=== PATIENT | male | born 1960 | race Two or more races ===

== ENCOUNTER 2024-01-29 11:37 | Inpatient (IN) | payer MEDICAID ==
[~2024-01-29] VITALS: Ht 167.6 cm; Wt 100.2 kg
[2024-01-29] MEDS: PREDNISONE 20MG TABLET PO STA (12:22)
[2024-01-29 12:38] LABS: HEMATOCRIT. 45.5 % (42.0-52.0); HEMOGLOBIN. 14.1 g/dL (14.0-18.0); MEAN CORPUSCULAR HEMOGLOBIN 24.5 pg (28.0-32.0); MEAN CORPUSCULAR HGB CONC 30.9 g/dL (31.0-37.0); MEAN CORPUSCULAR VOLUME 79.2 fL (80.0-94.0); MEAN PLATELET VOLUME 9.6 fl (7.4-10.4); PLATELET 297 x1000/uL (130-400); RED BLOOD CELL COUNT 5.75 mill/uL (4.7-6.1); RED CELL DISTRIBUTION WIDTH 20.5 % (11.6-14.6); WHITE BLOOD COUNT 13.5 x1000/uL (4.5-11.0)
[2024-01-29 12:48] LABS: DIFFERENTIAL COMMENT 1
[2024-01-29 12:58] LABS: CHLORIDE 108 mEq/L (98-107); POTASSIUM 4.4 mEq/L (3.5-5.1); SODIUM 140 mEq/L (136-145)
[2024-01-29 13:01] LABS: CALCIUM 9.3 mg/dL (8.7-10.4); CARBON DIOXIDE 22 mEq/L (21-32)
[2024-01-29 13:06] LABS: CREATININE 1.4 mg/dL (0.6-1.3); GLUCOSE 172 mg/dL (70-105); UREA NITROGEN BLOOD 32 mg/dL (9-23)
[2024-01-29 13:08] LABS: ALANINE AMINOTRANSFERASE 108 IU/L (10-49); ALBUMIN 4.5 g/dL (3.2-4.8); ASPARTATE AMINOTRANSFERASE 67 IU/L (<34)
[2024-01-29 13:09] LABS: BILIRUBIN DIRECT 0.6 mg/dL (<=3.0); BILIRUBIN TOTAL 1.9 mg/dL (0.1-1.0); PROTEIN TOTAL 7.3 g/dL (6.0-8.3)
[2024-01-29 13:12] LABS: TROPONIN I HIGH SENSITIVITY < 4 ng/L (3.0-53)
[2024-01-29] MEDS: ALBUTEROL (0.083%) 2.5MG/3ML NEB HHN SCH (13:29)
[2024-01-29] MEDS: IPRATROPIUM BROMIDE (0.02%) 0.5MG/2.5ML NEB HHN STA ×2 (13:31→17:26)
[2024-01-29 13:33] VITALS: PULSE 109; RESP 24; O2SAT 98
[2024-01-29 14:12] LABS: PLATELET ESTIMATE NORMAL
[2024-01-29 14:13] LABS: ANISOCYTOSIS 1+
[2024-01-29] MEDS ORDERED: DEXTROSE 50% WATER 50ML SYRINGE IV PRN (14:15)
[2024-01-29] MEDS ORDERED: GUAIFENESIN 200MG/10ML SUGAR FREE UDC PO PRN (14:15)
[2024-01-29] MEDS ORDERED: ACETAMINOPHEN 325MG TABLET PO PRN ×2 (14:15)
[2024-01-29] MEDS ORDERED: NON FORMULARY MED XX PRN (14:15)
[2024-01-29] MEDS: FUROSEMIDE 40MG/4ML VIAL IV SCH (14:40)
[2024-01-29] MEDS: CEFTRIAXONE 1GM/50ML 50 ML IV SCH (14:40)
[2024-01-29 14:58] LABS: BG BASE EXCESS -6.2 mmol/L (-2.0-3.0); BG CARBOXYHEMOGLOBIN 1.2 % (0.5-1.5); BG DEOXYHEMOGLOBIN 4.3 % (0.0-5.0); BG HCO3 ACT 16.4 mmol/L (21.0-28.0); BG METHEMOGLOBIN 0.3 % (0.5-1.5); BG OXYGEN SATURATION 95.6 % (94.0-98.0); BG OXYHEMOGLOBIN 94.2 % (94.0-98.0); BG PCO2 25.8 mmHg (35.0-48.0); BG PH 7.421 (7.350-7.450); BG PO2 77.6 mmHg (83.0-108.0); BG SAMPLE SITE RIGHT RADIAL; BG TOTAL HEMOGLOBIN 14.5 g/dL (13.5-17.5); BG VENT MODE ROOM AIR
[2024-01-29] MEDS: METHYLPREDNISOLONE SOD SUCC 40MG/ML (ACT-O-VIAL) IV SCH (15:01)
[2024-01-29 15:10] LABS: IRON 41 ug/dL (65-175)
[2024-01-29 15:11] LABS: LDL CHOLESTEROL 93 mg/dL (5-100); TRIGLYCERIDE 150 mg/dL (0-150)
[2024-01-29 15:12] LABS: ALANINE AMINOTRANSFERASE 112 IU/L (10-49); ALBUMIN 4.4 g/dL (3.2-4.8); ASPARTATE AMINOTRANSFERASE 68 IU/L (<34); BILIRUBIN DIRECT 0.7 mg/dL (<=3.0); CHOLESTEROL 129 mg/dL (<200); HDL CHOLESTEROL 27 mg/dL (>55)
[2024-01-29 15:13] LABS: BILIRUBIN TOTAL 1.8 mg/dL (0.1-1.0); PHOSPHORUS 3.8 mg/dL (2.5-4.9); TOTAL IRON BINDING CAPACITY 426 ug/dl (250-425)
[2024-01-29 15:14] LABS: T4 FREE 1.74 ng/dL (0.89-1.76); VITAMIN B12 SERUM 405 pg/mL (211-911)
[2024-01-29 15:15] LABS: ETHANOL BLOOD < 10 mg/dL (<10); FERRITIN 94 ng/mL (22-322); THYROID STIMULATING HORMONE 2.92 uIU/mL (0.55-4.78)
[2024-01-29 15:16] LABS: FOLIC ACID (FOLATE) SERUM 19.52 ng/mL (>5.38)
[2024-01-29] MEDS: NICOTINE 14MG PATCH TD SCH (15:25)
[2024-01-29] MEDS: ENOXAPARIN 100MG/ML SYR SUBCUT NR (15:25)
[2024-01-29] MEDS: AZITHROMYCIN 500MG/250ML 250 ML IV SCH (15:37)
[2024-01-29 15:45] LABS: CLARITY URINE CLEAR (CLEAR); COLOR URINE YELLOW (YELLOW); GLUCOSE URINE NEGATIVE (NEGATIVE); KETONES URINE NEGATIVE (NEGATIVE); LEUKOCYTE ESTERASE URINE 2+ (NEGATIVE); NITRITE URINE NEGATIVE (NEGATIVE); OCCULT BLOOD URINE NEGATIVE (NEGATIVE); PH URINE 5.5 (4.5-8.0); PROTEIN URINE TRACE (NEGATIVE); UROBILINOGEN URINE 0.2 E.U./dL (0.2-1.0)
[2024-01-29 16:04] LABS: INR 1.2; PROTHROMBIN TIME 13.6 sec (9.6-11.0)
[2024-01-29 16:06] LABS: LACTIC ACID 2.3 mmol/L (0.4-2.0)
[2024-01-29 16:08] LABS: *AMPHETAMINES SCREEN URINE NEGATIVE (NEGATIVE); *BARBITURATES SCREEN URINE NEGATIVE (NEGATIVE); *BENZODIAZEPINES SCREEN URINE NEGATIVE (NEGATIVE); *COCAINE SCREEN URINE NEGATIVE (NEGATIVE); CANNABINOID URINE SCREEN PRESUMPTIVE POSITIVE (NEGATIVE); ECSTASY MDMA SCREEN URINE NEGATIVE (NEGATIVE); METHADONE URINE SCREEN NEGATIVE (NEGATIVE); OPIATES URINE SCREEN NEGATIVE (NEGATIVE); PHENCYCLIDINE URINE SCREEN NEGATIVE (NEGATIVE)
[2024-01-29] MEDS: ASPIRIN 81MG TABLET PO SCH (16:46)
[2024-01-29] MEDS: LORAZEPAM 0.5MG TABLET PO PRN (16:51)
[2024-01-29] MEDS: BLOOD SUGAR DIAGNOSTIC STRIP TEST SCH (17:00)
[2024-01-29 17:15] LABS: BACTERIA URINE TRACE; RBC URINE 0-2 /hpf (0-2); SQUAMOUS EPITHELIAL CELL URINE FEW /lpf (RARE/1+); WBC URINE 25-50 /hpf (0-2)
[2024-01-29] MEDS: IPRATROPIUM/ALBUTEROL 0.5-3(2.5)MG/3ML NEB HHN SCH (17:19)
[2024-01-29 17:26] VITALS: PULSE 116; RESP 33; O2SAT 94
[2024-01-29] MEDS: ALBUTEROL (0.083%) 2.5MG/3ML NEB HHN ONE (17:26)
[2024-01-29] MEDS: INSULIN LISPRO 100 UNITS/ML SUBCUT SCH (18:56)
[2024-01-29] MEDS ORDERED: MELATONIN 3MG TABLET PO PRN (21:00)
[2024-01-29] MEDS: ATORVASTATIN CALCIUM 20MG TABLET PO SCH (21:59)
[2024-01-29] MEDS: ENOXAPARIN 100MG/ML SYR SUBCUT SCH (23:59)
[2024-01-30 02:52] LABS: CREATINE KINASE 172 IU/L (46-171)
[2024-01-30 02:54] LABS: TROPONIN I HIGH SENSITIVITY < 4 ng/L (3.0-53)
[2024-01-30 05:09] LABS: HEMOGLOBIN. 12.7 g/dL (14.0-18.0); MEAN CORPUSCULAR HGB CONC 31.7 g/dL (31.0-37.0); MEAN CORPUSCULAR VOLUME 78.9 fL (80.0-94.0); PLATELET 231 x1000/uL (130-400); RED BLOOD CELL COUNT 5.07 mill/uL (4.7-6.1); RED CELL DISTRIBUTION WIDTH 20.3 % (11.6-14.6); WHITE BLOOD COUNT 8.3 x1000/uL (4.5-11.0)
[2024-01-30 05:20] LABS: CHLORIDE 105 mEq/L (98-107); POTASSIUM 4.7 mEq/L (3.5-5.1); SODIUM 134 mEq/L (136-145)
[2024-01-30 05:21] LABS: CALCIUM 8.9 mg/dL (8.7-10.4); CARBON DIOXIDE 21 mEq/L (21-32)
[2024-01-30 05:26] LABS: CREATINE KINASE 178 IU/L (46-171); CREATININE 1.8 mg/dL (0.6-1.3); UREA NITROGEN BLOOD 40 mg/dL (9-23)
[2024-01-30 05:40] LABS: GLUCOSE 430 mg/dL (70-105); TROPONIN I HIGH SENSITIVITY < 4 ng/L (3.0-53)
[2024-01-30 05:44] LABS: DIFFERENTIAL COMMENT 1
[2024-01-30] MEDS: INSULIN LISPRO 100 UNITS/ML SUBCUT NR (08:01)
[2024-01-30] MEDS: LOSARTAN 50 MG TABLET PO SCH (10:18)
[2024-01-30 10:37] LABS: PLATELET ESTIMATE NORMAL
[2024-01-30 10:38] LABS: ANISOCYTOSIS 1+
[2024-01-30] MEDS: METOPROLOL TARTRATE 50MG TABLET PO SCH (11:41)
[2024-01-30] MEDS: CEFTRIAXONE 1GM/50ML 50 ML IV SCH (13:21)
[2024-01-30] MEDS: LORAZEPAM 1MG TABLET PO PRN (13:31)
[2024-01-30] MEDS: AZITHROMYCIN 500MG/250ML 250 ML IV SCH (14:10)
[2024-01-30 17:57] VITALS: PULSE 75; RESP 26; O2SAT 96
[2024-01-30] MEDS ORDERED: IPRATROPIUM/ALBUTEROL 0.5-3(2.5)MG/3ML NEB HHN NR (17:57)
[2024-01-30 18:00] VITALS: BP 134/107; PULSE 125; RESP 25; TEMP 37.05852; O2SAT 91
[2024-01-30] MEDS ORDERED: IPRATROPIUM/ALBUTEROL 0.5-3(2.5)MG/3ML NEB HHN PRN (18:00)
[2024-01-30] MEDS: METOPROLOL TARTRATE 50MG TABLET PO NR (18:48)
[2024-01-30] MEDS: METHYLPREDNISOLONE SOD SUCC 40MG/ML (ACT-O-VIAL) IV SCH (18:49)
[2024-01-30 19:06] VITALS: BP 137/107; PULSE 125; RESP 22; TEMP 37.0852
[2024-01-30 20:00] VITALS: BP 94/82; PULSE 107; RESP 22; TEMP 36.28068; O2SAT 98
[2024-01-30] MEDS: LORAZEPAM 2MG/ML INJ IV PRN (21:43)
[2024-01-30] MEDS: IPRATROPIUM/ALBUTEROL 0.5-3(2.5)MG/3ML NEB HHN SCH (22:00)
[2024-01-31] VITALS (11 sets, daily range): BP systolic 122–199; BP diastolic 83–120; PULSE 78–117; RESP 19–22; TEMP 36.44736–37.00296; O2SAT 90–100
[2024-01-31] MEDS: METOPROLOL TARTRATE 50MG TABLET PO SCH (08:14)
[2024-01-31 09:20] LABS: HEMATOCRIT. 39.5 % (42.0-52.0); HEMOGLOBIN. 12.2 g/dL (14.0-18.0); MEAN CORPUSCULAR HEMOGLOBIN 24.8 pg (28.0-32.0); PLATELET 241 x1000/uL (130-400); RED BLOOD CELL COUNT 4.93 mill/uL (4.7-6.1); RED CELL DISTRIBUTION WIDTH 20.7 % (11.6-14.6)
[2024-01-31 09:22] LABS: DIFFERENTIAL COMMENT 1
[2024-01-31 09:25] LABS: CHLORIDE 106 mEq/L (98-107); POTASSIUM 5.9 mEq/L (3.5-5.1); SODIUM 138 mEq/L (136-145)
[2024-01-31 09:26] LABS: CALCIUM 9.3 mg/dL (8.7-10.4); CARBON DIOXIDE 25 mEq/L (21-32)
[2024-01-31 09:31] LABS: CREATININE 1.3 mg/dL (0.6-1.3); GLUCOSE 299 mg/dL (70-105); UREA NITROGEN BLOOD 44 mg/dL (9-23)
[2024-01-31 09:33] LABS: PHOSPHORUS 3.9 mg/dL (2.5-4.9)
[2024-01-31] MEDS ORDERED: IPRATROPIUM/ALBUTEROL 0.5-3(2.5)MG/3ML NEB HHN NR (10:00)
[2024-01-31] MEDS: CALCIUM GLUCONATE 100MG/ML 10ML VIAL IV NR (10:31)
[2024-01-31] MEDS: DOCUSATE SODIUM 100MG CAPSULE PO PRN (10:31)
[2024-01-31] MEDS: DEXTROSE 50% WATER 50ML SYRINGE IV NR (10:31)
[2024-01-31] MEDS: INSULIN REGULAR (HUMULIN R) 1000UNITS/10ML VIAL IV NR (10:32)
[2024-01-31 13:16] LABS: BG BASE EXCESS -4.7 mmol/L (-2.0-3.0); BG CARBOXYHEMOGLOBIN 0.8 % (0.5-1.5); BG DEOXYHEMOGLOBIN 1.3 % (0.0-5.0); BG FRACTION INSPIRED OXYGEN 36; BG HCO3 ACT 20.1 mmol/L (21.0-28.0); BG METHEMOGLOBIN 0.3 % (0.5-1.5); BG OXYGEN SATURATION 98.7 % (94.0-98.0); BG OXYHEMOGLOBIN 97.6 % (94.0-98.0); BG PCO2 36.1 mmHg (35.0-48.0); BG PH 7.363 (7.350-7.450); BG PO2 112.7 mmHg (83.0-108.0); BG TOTAL HEMOGLOBIN 13.3 g/dL (13.5-17.5); BG VENT MODE NASAL CANNULA
[2024-01-31] MEDS: INSULIN REGULAR (HUMULIN R) 1000UNITS/10ML VIAL SUBCUT NR (13:32)
[2024-01-31] MEDS: DILTIAZEM HCL 60MG TABLET PO SCH (13:32)
[2024-01-31 16:39] LABS: POTASSIUM 6.2 mEq/L (3.5-5.1)
[2024-01-31] MEDS: INSULIN LISPRO 100 UNITS/ML SUBCUT NR (16:39)
[2024-01-31] MEDS ORDERED: ALBUTEROL (0.083%) 2.5MG/3ML NEB HHN NR (17:00)
[2024-01-31] MEDS: SODIUM POLYSTYRENE SULFONATE 15 G/60 ML BOT PO NR (17:06)
[2024-01-31] MEDS: SODIUM BICARBONATE 8.4% 50MEQ/50ML SYR IV NR (17:06)
[2024-01-31] MEDS: CHLORDIAZEPOXIDE 10MG CAPSULE PO SCH (17:06)
[2024-01-31] MEDS: INSULIN LISPRO 100 UNITS/ML SUBCUT SCH (17:58)
[2024-01-31] MEDS: BUDESONIDE 0.5MG/2ML NEB HHN SCH (18:00)
[2024-01-31] MEDS: FUROSEMIDE 40MG/4ML VIAL IVP NR (18:55)
[2024-01-31] MEDS: CALCIUM GLUCONATE 1GM PREMIX 50 ML IV NR (20:32)
[2024-01-31] MEDS ORDERED: CHLORDIAZEPOXIDE 10MG CAPSULE PO SCH (22:00)
[2024-01-31] MEDS: CLONIDINE 0.1MG TABLET PO SCH (22:00)
[2024-01-31] MEDS: INSULIN GLARGINE 100 UNITS/ML SUBCUT SCH (22:22)
[2024-01-31 23:51] LABS: CARBON DIOXIDE 28 mEq/L (21-32); CHLORIDE 106 mEq/L (98-107); POTASSIUM 5.2 mEq/L (3.5-5.1); SODIUM 140 mEq/L (136-145)
[2024-01-31 23:52] LABS: CALCIUM 9.6 mg/dL (8.7-10.4)
[2024-01-31 23:57] LABS: CREATININE 1.2 mg/dL (0.6-1.3); GLUCOSE 176 mg/dL (70-105); UREA NITROGEN BLOOD 39 mg/dL (9-23)
[2024-01-31 23:58] LABS: PHOSPHORUS 4.5 mg/dL (2.5-4.9)
[2024-01-31 23:59] LABS: CREATINE KINASE 200 IU/L (46-171)
[2024-02-01] VITALS (7 sets, daily range): BP systolic 145–166; BP diastolic 62–104; PULSE 72–98; RESP 15–20; TEMP 36.114–36.89184; O2SAT 95–99
[2024-02-01 00:08] LABS: ANISOCYTOSIS 1+; PLATELET ESTIMATE NORMAL
[2024-02-01 07:31] LABS: HEMATOCRIT. 37.9 % (42.0-52.0); HEMOGLOBIN. 11.9 g/dL (14.0-18.0); MEAN CORPUSCULAR HEMOGLOBIN 24.9 pg (28.0-32.0); MEAN CORPUSCULAR HGB CONC 31.4 g/dL (31.0-37.0); MEAN CORPUSCULAR VOLUME 79.3 fL (80.0-94.0); MEAN PLATELET VOLUME 9.7 fl (7.4-10.4); PLATELET 229 x1000/uL (130-400); RED BLOOD CELL COUNT 4.77 mill/uL (4.7-6.1); RED CELL DISTRIBUTION WIDTH 20.3 % (11.6-14.6); WHITE BLOOD COUNT 10.8 x1000/uL (4.5-11.0)
[2024-02-01 07:40] LABS: DIFFERENTIAL COMMENT 1
[2024-02-01 07:41] LABS: CHLORIDE 104 mEq/L (98-107); POTASSIUM 5.3 mEq/L (3.5-5.1); SODIUM 139 mEq/L (136-145)
[2024-02-01 07:42] LABS: CALCIUM 9.4 mg/dL (8.7-10.4); CARBON DIOXIDE 27 mEq/L (21-32)
[2024-02-01 07:47] LABS: CREATININE 1.2 mg/dL (0.6-1.3); GLUCOSE 235 mg/dL (70-105); UREA NITROGEN BLOOD 38 mg/dL (9-23)
[2024-02-01 07:48] LABS: CREATINE KINASE 208 IU/L (46-171)
[2024-02-01 07:50] LABS: PHOSPHORUS 4.2 mg/dL (2.5-4.9)
[2024-02-01] MEDS ORDERED: HYDROXYZINE 25MG TABLET PO PRN (08:45)
[2024-02-01] MEDS ORDERED: LORAZEPAM 0.5MG TABLET PO PRN (08:45)
[2024-02-01] MEDS: AZITHROMYCIN 500 MG TABLET PO SCH (08:48)
[2024-02-01] MEDS: SERTRALINE HCL 25MG TABLET PO SCH (08:58)
[2024-02-01] MEDS: FUROSEMIDE 40MG/4ML VIAL IVP SCH (14:51)
[2024-02-01] MEDS: CLOTRIMAZOLE 1% CREAM 15GM TOP SCH (14:52)
[2024-02-01] MEDS: DIGOXIN 500MCG/2ML AMP IV NR (14:52)
[2024-02-01 15:19] LABS: ANISOCYTOSIS 2+; MICROCYTOSIS 1+; PLATELET ESTIMATE NORMAL
[2024-02-01 17:00] LABS: CREATINE KINASE 161 IU/L (46-171)
[2024-02-01] MEDS: DIGOXIN 125MCG TABLET PO SCH (17:21)
[2024-02-01] MEDS: PREDNISONE 20MG TABLET PO SCH (21:42)
[2024-02-02] VITALS (9 sets, daily range): BP systolic 126–163; BP diastolic 68–110; PULSE 53–102; RESP 10–24; TEMP 36.44736–36.9474; O2SAT 95–98
[2024-02-02 07:03] LABS: CARBON DIOXIDE 30 mEq/L (21-32); CHLORIDE 100 mEq/L (98-107); POTASSIUM 4.7 mEq/L (3.5-5.1); SODIUM 136 mEq/L (136-145)
[2024-02-02 07:05] LABS: CALCIUM 9.4 mg/dL (8.7-10.4)
[2024-02-02 07:09] LABS: CREATININE 1.2 mg/dL (0.6-1.3); UREA NITROGEN BLOOD 37 mg/dL (9-23)
[2024-02-02 07:11] LABS: DIGOXIN 0.3 ng/mL (0.8-2.0)
[2024-02-02 07:29] LABS: HEMATOCRIT 40.4 % (42.0-52.0); HEMOGLOBIN 12.2 g/dL (14.0-18.0); MEAN CORPUSCULAR HEMOGLOBIN 24.3 pg (28.0-32.0); MEAN CORPUSCULAR HGB CONC 30.3 g/dL (31.0-37.0); MEAN CORPUSCULAR VOLUME 80.1 fL (80.0-94.0); PLATELET 244 x1000/uL (130-400); RED BLOOD CELL COUNT 5.04 mill/uL (4.7-6.1); RED CELL DISTRIBUTION WIDTH 20.6 % (11.6-14.6); WHITE BLOOD COUNT 11.2 x1000/uL (4.5-11.0)
[2024-02-02 08:43] LABS: GLUCOSE 450 mg/dL (70-105)
[2024-02-02] MEDS: INSULIN GLARGINE 100 UNITS/ML SUBCUT SCH (09:39)
[2024-02-02] MEDS: CLONIDINE 0.1MG TABLET PO PRN (09:56)
[2024-02-03] VITALS: BP 143/59; PULSE 91; RESP 16; TEMP 36.78072; O2SAT 97
[2024-02-03 04:00] VITALS: BP 132/88; PULSE 96; RESP 18; TEMP 36.6696; O2SAT 97
[2024-02-03 06:45] LABS: CHLORIDE 101 mEq/L (98-107); POTASSIUM 4.1 mEq/L (3.5-5.1); SODIUM 139 mEq/L (136-145)
[2024-02-03 06:46] LABS: CALCIUM 8.9 mg/dL (8.7-10.4); CARBON DIOXIDE 33 mEq/L (21-32)
[2024-02-03 06:51] LABS: CREATININE 0.9 mg/dL (0.6-1.3); UREA NITROGEN BLOOD 26 mg/dL (9-23)
[2024-02-03 06:56] LABS: BASOPHILS % 0.2 % (0.0-2.0); DIFFERENTIAL COMMENT 0; EOSINOPHILS % 0.5 % (0.0-5.0); HEMATOCRIT. 41.7 % (42.0-52.0); HEMOGLOBIN. 12.5 g/dL (14.0-18.0); MEAN CORPUSCULAR HEMOGLOBIN 23.8 pg (28.0-32.0); MEAN CORPUSCULAR HGB CONC 29.9 g/dL (31.0-37.0); MEAN CORPUSCULAR VOLUME 79.7 fL (80.0-94.0); MEAN PLATELET VOLUME 9.4 fl (7.4-10.4); MONOCYTES % 7.3 % (2.0-8.0); PLATELET 231 x1000/uL (130-400); RED BLOOD CELL COUNT 5.23 mill/uL (4.7-6.1); RED CELL DISTRIBUTION WIDTH 20.1 % (11.6-14.6); WHITE BLOOD COUNT 11.6 x1000/uL (4.5-11.0)
[2024-02-03 07:26] LABS: GLUCOSE 170 mg/dL (70-105)
[2024-02-03 08:00] VITALS: BP 124/90; PULSE 98; RESP 20; TEMP 37.11408; O2SAT 98
[2024-02-03] MEDS ORDERED: LIDOCAINE HCL 1% 10 MG/ML 10ML VIAL ONE (09:55)
[2024-02-03] MEDS ORDERED: DIPHENHYDRAMINE 50MG/ML VIAL ONE (09:55)
[2024-02-03] MEDS ORDERED: IODIXANOL 320MG/ML 100 ML BOTTLE IV ONE ×2 (09:55→10:56)
[2024-02-03] MEDS ORDERED: HEPARIN 1000 UNITS/ML 10ML ONE ×2 (09:55→10:48)
[2024-02-03] MEDS ORDERED: VERAPAMIL HCL 2.5 MG/1 ML 2ML VIAL IV ONE (09:55)
[2024-02-03] MEDS ORDERED: MIDAZOLAM HCL 2 MG/2 ML VIAL ONE (10:15)
[2024-02-03] MEDS ORDERED: FENTANYL CITRATE/PF 50MCG/ML 2ML VIAL ONE (10:15)
[2024-02-03] MEDS ORDERED: METOPROLOL TARTRATE 5MG/5ML VIAL IV ONE (10:17)
[2024-02-03] MEDS ORDERED: FUROSEMIDE 40MG/4ML VIAL ONE (10:46)
[2024-02-03] MEDS ORDERED: ATROPINE SULFATE 1MG/10ML SYR ONE (10:52)
[2024-02-03] MEDS ORDERED: CLOPIDOGREL 75MG TABLET ONE (10:55)
[2024-02-03] MEDS ORDERED: ACETAMINOPHEN 325MG TABLET PO PRN (11:15)
[2024-02-03] MEDS ORDERED: ATROPINE SULFATE 1MG/10ML SYR IV PRN (11:15)
[2024-02-03 12:00] VITALS: BP 117/91; PULSE 98; RESP 29; TEMP 37.00296; O2SAT 98
[2024-02-03] MEDS: SENNOSIDES 8.6MG TABLET PO SCH (12:15)
[2024-02-03 16:00] VITALS: BP 147/83; PULSE 96; RESP 21; TEMP 36.78072; O2SAT 95
[2024-02-03 20:00] VITALS: BP 114/78; PULSE 92; RESP 18; TEMP 36.72516; O2SAT 96
[2024-02-04] VITALS: BP 128/99; PULSE 94; RESP 20; TEMP 36.6696; O2SAT 97
[2024-02-04 04:00] VITALS: BP 131/56; PULSE 96; RESP 18; TEMP 36.89184; O2SAT 96
[2024-02-04 06:39] LABS: BASOPHILS % 0.1 % (0.0-2.0); DIFFERENTIAL COMMENT 0; EOSINOPHILS % 0.9 % (0.0-5.0); HEMATOCRIT. 40.8 % (42.0-52.0); HEMOGLOBIN. 12.7 g/dL (14.0-18.0); LYMPHOCYTES % 9.1 % (20.0-50.0); MEAN CORPUSCULAR HEMOGLOBIN 24.5 pg (28.0-32.0); MEAN CORPUSCULAR HGB CONC 31.2 g/dL (31.0-37.0); MEAN CORPUSCULAR VOLUME 78.7 fL (80.0-94.0); MEAN PLATELET VOLUME 9.4 fl (7.4-10.4); MONOCYTES % 8.2 % (2.0-8.0); NEUTROPHILS % 81.7 % (40.0-76.0); PLATELET 236 x1000/uL (130-400); RED BLOOD CELL COUNT 5.18 mill/uL (4.7-6.1); WHITE BLOOD COUNT 12.3 x1000/uL (4.5-11.0)
[2024-02-04 06:42] LABS: CHLORIDE 100 mEq/L (98-107); POTASSIUM 4.2 mEq/L (3.5-5.1); SODIUM 138 mEq/L (136-145)
[2024-02-04 06:43] LABS: CALCIUM 8.7 mg/dL (8.7-10.4); CARBON DIOXIDE 34 mEq/L (21-32)
[2024-02-04 06:48] LABS: CREATININE 1.1 mg/dL (0.6-1.3); GLUCOSE 184 mg/dL (70-105); UREA NITROGEN BLOOD 25 mg/dL (9-23)
[2024-02-04 08:00] VITALS: BP 142/115; PULSE 110; RESP 24; TEMP 36.9474; TEMP 36.94740; O2SAT 99
[2024-02-04] MEDS: CLOPIDOGREL 75MG TABLET PO SCH (08:13)
[2024-02-04 08:28] VITALS: PULSE 104; RESP 18
[2024-02-04] MEDS ORDERED: APIX5TAB MT (11:07)
[2024-02-04] MEDS ORDERED: CLOP-31 PO (11:07)
[2024-02-04 12:14] VITALS: BP 142/115; PULSE 110; TEMP 98.5; O2SAT 99
== END 2024-02-04 13:30 | disposition home or self-care (01) | DRG 710 ==
LOC: ER 11:37 → 5WST 13:44 → EDBEDREQ 13:54 → EDBEDREQTM 13:54 → 5WST 01-30 12:25 → 3WST 01-30 15:55
PROVIDERS: ADMIT Internal Medicine; ATTEND Internal Medicine
PROC: 4A023N7 Measurement of Cardiac Sampling and Pressure, Left Heart, Percutaneous Approach (ICD-10-PCS; principal; 2024-02-03)
PROC: B211YZZ Fluoroscopy of Multiple Coronary Arteries using Other Contrast (ICD-10-PCS; 2024-02-03)
PROC: 027034Z Dilation of Coronary Artery, One Artery with Drug-eluting Intraluminal Device, Percutaneous Approach (ICD-10-PCS; 2024-02-03)
DX: A41.9 Sepsis, unspecified organism (principal); J96.20 Acute and chronic respiratory failure, unspecified whether with hypoxia or hypercapnia; N17.0 Acute kidney failure with tubular necrosis; I50.23 Acute on chronic systolic (congestive) heart failure; E87.1 Hypo-osmolality and hyponatremia; E87.3 Alkalosis; B35.6 Tinea cruris; E87.20 Acidosis, unspecified; I48.0 Paroxysmal atrial fibrillation; D50.9 Iron deficiency anemia, unspecified; E11.65 Type 2 diabetes mellitus with hyperglycemia; I11.0 Hypertensive heart disease with heart failure; J44.1 Chronic obstructive pulmonary disease with (acute) exacerbation; Z20.822 Contact with and (suspected) exposure to COVID-19; R56.9 Unspecified convulsions; Z79.01 Long term (current) use of anticoagulants; D72.810 Lymphocytopenia; F10.20 Alcohol dependence, uncomplicated; I49.3 Ventricular premature depolarization; J98.11 Atelectasis; F17.210 Nicotine dependence, cigarettes, uncomplicated; K59.00 Constipation, unspecified; L29.9 Pruritus, unspecified; E87.5 Hyperkalemia; F41.1 Generalized anxiety disorder; I25.10 Atherosclerotic heart disease of native coronary artery without angina pectoris; G47.00 Insomnia, unspecified; E66.01 Morbid (severe) obesity due to excess calories; R32 Unspecified urinary incontinence; R74.01 Elevation of levels of liver transaminase levels; Z79.4 Long term (current) use of insulin; Z79.82 Long term (current) use of aspirin; Z79.02 Long term (current) use of antithrombotics/antiplatelets; Z79.899 Other long term (current) drug therapy; Z82.49 Family history of ischemic heart disease and other diseases of the circulatory system; Z91.199 Patient's noncompliance with other medical treatment and regimen due to unspecified reason; Z68.35 Body mass index [BMI] 35.0-35.9, adult; Z60.2 Problems related to living alone; Z71.6 Tobacco abuse counseling; M62.82 Rhabdomyolysis
CPT/HCPCS: 36415; 36600; 71045; 76705; 80048; 80061; 80076; 80162; 80305; 80320; 81003; 82375; 82550; 82607; 82728; 82746; 82805; 82962; 83036; 83540; 83550; 83605; 83735; 83880; 83930; 84100; 84132; 84145; 84439; 84443; 84480; 84484; 85025; 85027; 85347; 87426; 87804; 92928; 93005; 93306; 93458; 94640; 99291; C1769; C1874; C1887; C1893; J0456; J0461; J0610; J0696; J1160; J1200; J1644; J1650; J1815; J1940; J2060; J2250; J2920; J3010; J3490; J7512; J7626; Q9967; G0480